=== PATIENT | male | born 1935 | race Caucasian/White ===

== ENCOUNTER 2017-09-21 16:48 | Inpatient (IN) | payer OTHER ==
[~2017-09-21] VITALS: Ht 182.9 cm; Wt 105.8 kg
[2017-09-21] MEDS ORDERED: XIFAXAN550 MG PO (18:26)
[2017-09-21] MEDS ORDERED: ENULOSE10 GM/15 M PO (18:26)
[2017-09-21] MEDS ORDERED: ACTIGALL300 MG PO (18:26)
[2017-09-21] MEDS ORDERED: ALDACTONE25 MG PO (18:27)
[2017-09-21] MEDS ORDERED: VICTOZA 2-0.6 MG/0.1 SC (18:27)
[2017-09-21] MEDS ORDERED: FUROSEMIDE20 MG PO (18:27)
[2017-09-21] MEDS ORDERED: METFORMIN HCL500 MG PO (18:27)
[2017-09-21] MEDS ORDERED: TAB-A-VITE1 EACH PO (18:27)
[2017-09-21] MEDS ORDERED: ELIQUIS5 MG PO (18:27)
[2017-09-21] MEDS ORDERED: PROBIOTIC1 EAC1 PO (18:28)
[2017-09-21] MEDS ORDERED: ADULT ASPIRIN R81 MG PO (18:28)
[2017-09-21] MEDS ORDERED: PRILOSEC20 MG PO (18:28)
[2017-09-21 19:10] VITALS: BP 121/57
[2017-09-21 19:41] VITALS: BP 121/57
[2017-09-21 23:40] VITALS: BP 95/51
[2017-09-22 03:12] VITALS: BP 103/59
[2017-09-22 05:12] LABS: HEMATOCRIT 27.3 % (38.0-50.0); HEMOGLOBIN 9.5 G/DL (12.5-16.6); MCH 32.5 PG (29.0-34.0); MCHC 34.8 G/DL (30.0-36.0); MCV 93.5 FL (86-99); PLATELET COUNT 62 K/uL (156-360); RBC DIS.WIDTH-CV 16.1 % (11.8-14.6); RBC DIS.WIDTH-SD 55.1 % (39-53); RED BLOOD COUNT 2.92 M/uL (4.00-5.50); WHITE BLOOD COUNT 3.2 K/uL (4.1-10.2)
[2017-09-22 05:44] LABS: ALBUMIN 2.9 G/DL (3.2-4.8); ALKALINE PHOSPHATASE 159 IU/L (3-129); ALT (GPT) 24 IU/L (3-49); AST (GOT) 34 IU/L (2-34); CHLORIDE 102 MEQ/L (99-109); CREATININE 1.4 MG/DL (0.6-1.3); GFR ESTIMATE (CALCULATED) 52 mL/min/ (58.99-99999); GLUCOSE 260 mg/dL (70-99); POTASSIUM 4.1 MEQ/L (3.7-5.4); SODIUM 131 MEQ/L (136-147); TOTAL BILIRUBIN 1.6 MG/DL (0.0-1.0); TOTAL PROTEIN 6.3 G/DL (6.4-8.3); UREA NITROGEN (BUN) 18 mg/dL (9-23)
[2017-09-22 07:58] VITALS: BP 112/54
[2017-09-22 11:36] VITALS: BP 121/60
[2017-09-22 15:45] VITALS: BP 147/67
[2017-09-22 19:54] VITALS: BP 119/56
[2017-09-23 00:02] VITALS: BP 103/47
[2017-09-23 03:52] VITALS: BP 104/54
[2017-09-23 07:08] LABS: BASOPHIL (%) 0.6 % (0-1); EOSINOPHIL (%) 4.5 % (0-5); EOSINOPHIL COUNT 0.1 K/uL (0-0.3); HEMATOCRIT 28.5 % (38.0-50.0); HEMOGLOBIN 9.8 G/DL (12.5-16.6); LYMPHOCYTE (%) 31.7 % (15-42); MCH 32.5 PG (29.0-34.0); MCHC 34.4 G/DL (30.0-36.0); MCV 94.4 FL (86-99); MONOCYTE (%) 19.1 % (3-12); MONOCYTE COUNT 0.6 K/uL (0-0.8); NEUTROPHIL (%) 43.1 % (45-76); NEUTROPHIL COUNT 1.3 K/uL (1.8-6.4); PLATELET COUNT 56 K/uL (156-360); RBC DIS.WIDTH-CV 15.8 % (11.8-14.6); RBC DIS.WIDTH-SD 54.7 % (39-53); RED BLOOD COUNT 3.02 M/uL (4.00-5.50); WHITE BLOOD COUNT 3.1 K/uL (4.1-10.2)
[2017-09-23 08:11] VITALS: BP 112/53
[2017-09-23 09:01] LABS: CHLORIDE 104 MEQ/L (99-109); CREATININE 1.3 MG/DL (0.6-1.3); GFR ESTIMATE (CALCULATED) 57 mL/min/ (58.99-99999); GLUCOSE 207 mg/dL (70-99); SODIUM 131 MEQ/L (136-147); UREA NITROGEN (BUN) 16 mg/dL (9-23)
[2017-09-23] MEDS ORDERED: PERCOCET 5/31 TABLET PO (11:39)
[2017-09-23] MEDS ORDERED: ANTIBIOTIC OINT28 GM TP (11:44)
[2017-09-23 12:23] VITALS: BP 125/58
== END 2017-09-23 13:17 | disposition home or self-care (01) | DRG 552 ==
LOC: EME 16:48 → 3EAST 17:07 → EDOF 17:07 → ENRESERV 17:08 → 3EAST 19:02
PROVIDERS: Physician Assistant; Surgery
DX: S32.040A Wedge compression fracture of fourth lumbar vertebra, initial encounter for closed fracture (principal); S22.029A Unspecified fracture of second thoracic vertebra, initial encounter for closed fracture; S22.31XA Fracture of one rib, right side, initial encounter for closed fracture; S00.01XA Abrasion of scalp, initial encounter; S61.412A Laceration without foreign body of left hand, initial encounter; S61.411A Laceration without foreign body of right hand, initial encounter; V89.2XXA Person injured in unspecified motor-vehicle accident, traffic, initial encounter; Y92.410 Unspecified street and highway as the place of occurrence of the external cause; D69.6 Thrombocytopenia, unspecified; E11.65 Type 2 diabetes mellitus with hyperglycemia; E87.1 Hypo-osmolality and hyponatremia; R51 Headache; K74.60 Unspecified cirrhosis of liver; R16.1 Splenomegaly, not elsewhere classified; I48.91 Unspecified atrial fibrillation; G89.29 Other chronic pain; I10 Essential (primary) hypertension; E78.5 Hyperlipidemia, unspecified; I25.10 Atherosclerotic heart disease of native coronary artery without angina pectoris; K21.9 Gastro-esophageal reflux disease without esophagitis; Z79.01 Long term (current) use of anticoagulants; Z86.73 Personal history of transient ischemic attack (TIA), and cerebral infarction without residual deficits; Z87.891 Personal history of nicotine dependence; Z95.1 Presence of aortocoronary bypass graft
CPT/HCPCS: 71046; 72148; 74183; 80048; 80053; 82948; 85025; 85027; 93005; 99281; 99285; J1815; J7030